=== PATIENT | female | born 1980 | race Caucasian/White ===

== ENCOUNTER 2024-12-07 13:00 | Emergency (ER) | payer MEDICAID ==
[~2024-12-07] VITALS: Ht 152.4 cm; Wt 74.0 kg
[2024-12-07 13:07] VITALS: O2SAT 100
[2024-12-07 14:56] LABS: CLARITY URINE CLEAR (CLEAR); COLOR URINE YELLOW (YELLOW); GLUCOSE URINE NEGATIVE (NEGATIVE); KETONES URINE 1+ (NEGATIVE); LEUKOCYTE ESTERASE URINE TRACE (NEGATIVE); NITRITE URINE NEGATIVE (NEGATIVE); OCCULT BLOOD URINE 3+ (NEGATIVE); PH URINE >=9.0 (4.5-8.0); PROTEIN URINE 1+ (NEGATIVE); SPECIFIC GRAVITY URINE 1.024 (1.005-1.030); UROBILINOGEN URINE 0.2 E.U./dL (0.2-1.0)
[2024-12-07] MEDS: FAMOTIDINE 20MG TABLET PO ONE (15:11)
[2024-12-07] MEDS: KETOROLAC 30MG/ML VIAL IM STA (15:12)
[2024-12-07] MEDS: ONDANSETRON 4MG ODT PO STA (15:12)
[2024-12-07] MEDS: FAMOTIDINE 20MG/2ML VIAL IV STA (15:13)
[2024-12-07 15:31] LABS: RBC URINE 25-50 /hpf (0-2); SQUAMOUS EPITHELIAL CELL URINE 2+ /lpf (RARE/1+)
[2024-12-07 15:32] LABS: BACTERIA URINE 1+; WBC URINE 0-2 /hpf (0-2)
[2024-12-07 15:48] LABS: BASOPHILS % 0.2 % (0.0-2.0); HEMATOCRIT. 39.8 % (36.0-48.0); HEMOGLOBIN. 12.6 g/dL (12.0-16.0); LYMPHOCYTES % 10.7 % (20.0-50.0); MEAN CORPUSCULAR HEMOGLOBIN 26.4 pg (28.0-32.0); MEAN CORPUSCULAR HGB CONC 31.7 g/dL (31.0-37.0); MEAN CORPUSCULAR VOLUME 83.2 fL (81.0-99.0); MEAN PLATELET VOLUME 8.1 fl (7.4-10.4); MONOCYTES % 3.3 % (2.0-8.0); NEUTROPHILS % 85.8 % (40.0-76.0); PLATELET 341 x1000/uL (130-400); RED BLOOD CELL COUNT 4.78 mill/uL (4.2-5.4); RED CELL DISTRIBUTION WIDTH 15.2 % (11.6-14.6); WHITE BLOOD COUNT 15.5 x1000/uL (4.5-11.0)
[2024-12-07 16:00] LABS: CHLORIDE 106 mEq/L (98-107); POTASSIUM 3.6 mEq/L (3.5-5.1); SODIUM 138 mEq/L (136-145)
[2024-12-07 16:01] LABS: CALCIUM 9.7 mg/dL (8.7-10.4); CARBON DIOXIDE 24 mEq/L (21-32)
[2024-12-07 16:06] LABS: CREATININE 0.6 mg/dL (0.6-1.0); GLUCOSE 105 mg/dL (70-105); UREA NITROGEN BLOOD 13 mg/dL (9-23)
[2024-12-07 16:08] LABS: ALANINE AMINOTRANSFERASE 28 IU/L (10-49); ALBUMIN 4.8 g/dL (3.2-4.8); ASPARTATE AMINOTRANSFERASE 20 IU/L (<34); BILIRUBIN DIRECT 0.1 mg/dL (<=3.0)
[2024-12-07 16:09] LABS: BILIRUBIN TOTAL 0.4 mg/dL (0.1-1.0); PROTEIN TOTAL 7.2 g/dL (6.0-8.3)
[2024-12-07] MEDS ORDERED: IBUP-2029 MT (16:37)
[2024-12-07] MEDS ORDERED: ONDA4TAB50 MT (16:37)
[2024-12-07 16:54] VITALS: BP 124/68; PULSE 74; RESP 20; TEMP 36.7; O2SAT 100
== END 2024-12-07 16:57 | disposition home or self-care (01) ==
LOC: ER 13:08
DX: K80.20 Calculus of gallbladder without cholecystitis without obstruction (principal)
CPT/HCPCS: 99285; 76705; 80076; 80048; 81003; 81025; 83690; 85025; 36415; 96372; J1885; Q0162